=== PATIENT | male | born 1970 | race Caucasian/White ===

== ENCOUNTER 2024-08-17 17:07 | Emergency (ER) | payer MEDICAID ==
[~2024-08-17] VITALS: Ht 180.3 cm; Wt 138.0 kg
[2024-08-17 17:27] VITALS: TEMP 97.8
[2024-08-17] MEDS: normal saline 1000ml 1,000 ML IV ONE (18:54)
[2024-08-17] MEDS: diphenoxylate/atropine tablet (Lomotil) PO ONE (19:04)
[2024-08-17] MEDS: ondansetron/PF 4mg/2ml inj IV ONE (19:05)
[2024-08-17] MEDS ORDERED: LOPE2CAP PO (20:11)
[2024-08-17] MEDS ORDERED: ONDA-245 PO (20:11)
[2024-08-17] MEDS ORDERED: LISI5TAB22 PO (20:30)
[2024-08-17] MEDS ORDERED: LEVE750T6 PO (20:30)
[2024-08-17] MEDS ORDERED: ATOR20TA66 PO (20:30)
[2024-08-17] MEDS ORDERED: OMEP20CA16 PO (20:30)
[2024-08-17 20:33] VITALS: BP 170/108; PULSE 75; RESP 18; O2SAT 98
[2024-08-23] MEDS ORDERED: LEVE750T6 PO (14:45)
[2024-08-23] MEDS ORDERED: OMEP20CA16 PO (14:53)
[2024-08-23] MEDS ORDERED: LISI5TAB22 PO (14:53)
[2024-08-23] MEDS ORDERED: ATOR20TA PO (14:53)
[2024-08-25] MEDS ORDERED: NYSPWD TP (08:24)
[2024-08-25] MEDS ORDERED: METR375C6 PO (08:24)
[2024-08-25] MEDS ORDERED: CIPR250T4 PO (08:24)
[2024-08-25] MEDS ORDERED: LACT1CAP26 PO (08:24)
[2024-08-25] MEDS ORDERED: LISI5TAB22 PO (14:20)
[2024-08-25] MEDS ORDERED: OMEP20CA16 PO (14:20)
[2024-08-25] MEDS ORDERED: LEVE750T6 PO (14:20)
[2024-08-25] MEDS ORDERED: METR-159 PO (15:58)
== END 2024-08-17 20:35 | disposition home or self-care (01) ==
LOC: ER 17:08
DX: R11.2 Nausea with vomiting, unspecified (principal); R19.7 Diarrhea, unspecified; R53.1 Weakness; Z79.899 Other long term (current) drug therapy; Z20.822 Contact with and (suspected) exposure to COVID-19
CPT/HCPCS: 36415; 71045; 87502; 87503; 87811; 96361; 96374; 99284; J2405; J7030